=== PATIENT | female | born 1950 | race Hispanic/Latino ===

== ENCOUNTER → 2024-06-04 | Outpatient (CLI) | payer MEDICARE ==
[2024-06-04 12:30] LABS: BILIRUBIN,TOTAL 0.6 mg/dL (0.2-1.0); CREATININE 0.8 mg/dL (0.5-1.0)
== END | disposition home or self-care (01) ==
LOC: LAB 10:48
PROVIDERS: ATTEND Student in an Organized Health Care Education/Training Program
DX: I10 Essential (primary) hypertension (principal); E78.2 Mixed hyperlipidemia
CPT/HCPCS: 36415; 80053

== ENCOUNTER → 2024-06-14 | Outpatient (CLI) | payer MEDICARE ==
[~2024-06-14] MED LIST: IOHEXOL 350 MG/ML 100ML INFUS..BTL IV ONE
--- NOTE | 2024-06-14 10:55 | HMCIMG ---
CT CARDIAC ANGIO W/CONT. CCTA REASON: CHEST PAIN COMPARISON: None TECHNIQUE: Images are obtained through the heart in the axial plane before and during bolus IV contrast infusion, 100 cc Omnipaque 350. 2-D and 3-D multiplanar reconstruction images were then performed. The injection had to be repeated once due to motion artifact on the first sequence, total contrast volume was 200 cc. FINDINGS: This dictation is for the noncardiac findings only. Cardiac and coronary artery findings are reported separately. Visualized portions of the lungs are clear. There is normal-appearing pulmonary interstitium. There is no hilar or mediastinal lymphadenopathy. Chest wall structures appear unremarkable. IMPRESSION: 1. Unremarkable noncardiac portions of CT cardiac angiography.
== END | disposition home or self-care (01) ==
LOC: RAH 08:45
PROVIDERS: ATTEND Student in an Organized Health Care Education/Training Program
DX: R07.9 Chest pain, unspecified (principal)
CPT/HCPCS: 75574; Q9967

== ENCOUNTER → 2024-08-01 | Outpatient (CLI) | payer MEDICARE ==
--- NOTE | 2024-08-06 14:21 | HMCSR ---
APPROVED REPORT EXAM: Two-dimensional and M-mode echocardiogram with Doppler and color Doppler. INDICATION ICD: R07.9 Chest pain 2D Dimensions RVDd3.8 cmLVEF(%)54.0 (>50%)LVED Vol(simp.)99.0 mL IVSd0.8 (0.7-1.1cm)FS(%)28 %LVES Vol(simp.)42.0 mL LVDd4.3 (3.8-5.6cm)Ao Root(2D)2.7 (2.0-3.7cm)LVEF(%, simp.)57 % PWd0.8 (0.7-1.1cm)LVOT diam1.9 (1.8-2.4cm)LA ESV INDEX (BP)33.03 mL/m2 LVDs3.1 (2.5-4.0cm)IVC diam1.8 cm Aortic Valve AoV Vmax1.5 m/Quique Peak GR9.0 mmHgLVOT Vmax1.2 m/s AoV VTI0.4 mAo Mean GR4.8 mmHgLVOT VTI0.29 m VIRGILIO (VMAX)2.1 cm2AVA (VTI) 2.1 cm2 Mitral Valve MV E Sroh961.0 cm/sDECEL Guug005 ms MV A Vmax99.0 cm/sP 1/2 T60 ms E/A ratio1.2MVA (PHT)3.7 cm2 MR Max PG89 mmHg TDI E/E' Njbdjx17.9E/E' Krjacfb45.7 Pulmonary Valve PV Vmax1.1 m/sPV VTI0.29 mPV Mean GR3 mmHg PV Peak GR4.4 mmHgPI End Leelee. Phill 0.9 cm/s Tricuspid Valve TR Vmax2.3 m/sRAP (EST) 8 juBiBITO17.0 mmHg TR Peak GR21.0 mmHg Left Ventricle The left ventricle structure and function is normal. There is normal left ventricular wall thickness. LVEF is 55-60%. Indeterminate diastolic dysfunction. Right Ventricle The right ventricle is normal size. The right ventricular systolic function is normal. Atria The left atrium size is normal. The right atrium size is normal. Aortic Valve Aortic valve is trileaflet. Aortic valve leaflets are sclerotic but open well. Trace aortic regurgita tion. There is no aortic valvular stenosis. Mitral Valve Mitral valve leaflets are mildly sclerotic but open well. Mitral regurgitation is trace. There is no mitral valve stenosis. Tricuspid Valve The tricuspid valve leaflets appear normal. There is trace tricuspid regurgitation. Pulmonic Valve The pulmonic valve leaflets are thin and pliable; valve motion is normal. There is trace pulmonic merly vular regurgitation. Great Vessels The aortic root is normal in size. The IVC is normal in size and collapses >50% with inspiration. Pericardium No pericardial effusion. Conclusion The left ventricle structure and function is normal. LVEF is 55-60%. Indeterminate diastolic dysfunction. The right ventricle is normal size. The right ventricular systolic function is normal. The left atrium size is normal. The right atrium size is normal. No valvular pathology. No pericardial effusion.
== END | disposition home or self-care (01) ==
LOC: SHCH 08:11
PROVIDERS: ATTEND Student in an Organized Health Care Education/Training Program
DX: R07.9 Chest pain, unspecified (principal)
CPT/HCPCS: 93306

== ENCOUNTER 2024-08-14 05:47 | Day surgery (SDC) | payer MEDICARE ==
[2024-08-12 08:47] LABS: BILIRUBIN,URINE NEGATIVE (NEGATIVE); COLOR,URINE YELLOW (YELLOW); GLUCOSE, URINE (UA) NEGATIVE (NEGATIVE); KETONES,URINE NEGATIVE (NEGATIVE); LEUKOCYTE ESTERASE ,URINE 75 Leu/uL (NEGATIVE); NITRATE,URINE NEGATIVE (NEGATIVE); OCCULT BLOOD,URINE NEGATIVE (NEGATIVE); PROTEIN,URINE 30 mg/dL (NEGATIVE)
[2024-08-12 08:48] LABS: ADD UA MICROSCOPIC YES; APPEARANCE,URINE HAZY (CLEAR)
[2024-08-12 08:54] LABS: BACTERIA,URINE RARE /HPF (None Seen); MUCUS,URINE RARE LPF (None Seen); RBC,URINE 0-1 /HPF (0-1); SQUAMOUS EPITHELIAL CELL,UR RARE /HPF (0-2)
--- NOTE | 2024-08-12 08:55 | EKG ---
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
[2024-08-12 09:07] VITALS: BP 119/64; PULSE 53; RESP 14; TEMP 97.1
[2024-08-12 09:08] LABS: CREATININE 0.7 mg/dL (0.5-1.0); POTASSIUM 3.5 mmol/L (3.5-5.1)
[2024-08-12 09:10] LABS: INR <= 0.93 (0.85-1.15); PROTHROMBIN TIME 10.4 SEC (9.6-11.6)
[2024-08-12 09:12] LABS: PARTIAL THROMBOPLASTIN TIME 26.2 SEC (26.3-35.5)
[2024-08-12 09:15] LABS: BASOPHILS # (AUTO) 0.02 K/uL (0.00-0.20); BASOPHILS % (AUTO) 0.4 % (0.0-5.0); EOSINOPHILS # (AUTO) 0.11 K/uL (0.00-0.70); HEMATOCRIT 40.4 % (36-48); IMMATURE GRANULOCYTE ABSOLUTE 0.01 K/uL (0-1); LYMPHOCYTES # (AUTO) 1.9 K/uL (1.0-4.8); LYMPHOCYTES % (AUTO) 34.7 % (21.0-51.0); MEAN CORPUSCULAR HEMOGLOBIN 29.1 pg (27.0-33.0); MEAN CORPUSCULAR HGB CONC 32.2 g/dL (32.0-36.0); MEAN CORPUSCULAR VOLUME 90.4 fL (79-99); MONOCYTES # (AUTO) 0.5 K/uL (0.1-1.0); MONOCYTES % (AUTO) 8.2 % (3.0-13.0); NEUTROPHILS % (AUTO) 54.5 % (40.0-77.0); PLATELET COUNT (AUTO) 234 K/uL (130-400); RED BLOOD CELL COUNT(AUTO) 4.47 MIL/uL (4.00-5.50); RED CELL DISTRIBUTION WIDTH 12.9 % (11.0-15.5); WHITE BLOOD COUNT (AUTO) 5.5 K/uL (4.8-10.8)
--- NOTE | 2024-08-12 10:04 | HMCIMG ---
CHEST 1VW HISTORY: Preop COMPARISON: None FINDINGS: A frontal projection of the chest was obtained. Prominent interstitial markings are seen with possible superimposed infiltrates. The heart is borderline enlarged. Degenerative changes are seen. No evidence of aortic calcification is seen. IMPRESSION: 1. Prominent interstitial markings are seen with possible superimposed infiltrates.
--- NOTE | 2024-08-13 09:18 | NUR ---
REPORT REPORTED UA AND CXR TO HANANE CABALLERO. OK TO PROCEED
[~2024-08-14] VITALS: Ht 162.6 cm; Wt 77.7 kg
[2024-08-14] VITALS (8 sets, daily range): BP systolic 108–217; BP diastolic 60–173; PULSE 51–62; RESP 6–19; TEMP 94.7–97.7
[~2024-08-14 05:47] MED LIST changes: +ASPI-1443 PO; +ERGO500093 PO; -IOHEXOL 350 MG/ML 100ML INFUS..BTL IV ONE; +LOSA25TA41 PO; +PANT40TA54 PO; +ROSU10TA72 PO
[2024-08-14] MEDS: 0.9%NACL 1000ML 1,000 ML IV SCH (06:31)
[2024-08-14] MEDS ORDERED: ATOR20TA65 PO (06:39)
[2024-08-14] MEDS ORDERED: HEParin 10,000 UNIT/10ML (1,000 UNIT/ML) VIAL ONE (07:08)
[2024-08-14] MEDS ORDERED: IOHEXOL 350 MG/ML 100ML INFUS..BTL IV ONE (07:08)
[2024-08-14] MEDS ORDERED: NITROGLYCERIN 50MG VIAL ONE (07:08)
[2024-08-14] MEDS ORDERED: VERAPAMIL HCL 2.5 MG/ML VIAL ONE (07:08)
[2024-08-14] MEDS ORDERED: HEParin-NS 1,000 UNIT/500 ML 1,500 ML IV ONE (07:08)
[2024-08-14] MEDS ORDERED: LIDOCAINE HCL 400MG/20ML VIAL ONE (07:08)
[2024-08-14] MEDS ORDERED: FENTanyl CITRate PF 50 MCG/1 ML 2ML VIAL ONE (07:39)
[2024-08-14] MEDS ORDERED: MIDAZOLAM HCL 1 MG/ML 2ML VIAL ONE (07:39)
[2024-08-14] MEDS ORDERED: ATROPINE 1MG SYG IVP ONE (07:55)
[2024-08-14] MEDS ORDERED: DEXTROSE 50%-WATER 50 ML DISP.SYRIN IV PRN (09:00)
[2024-08-14] MEDS ORDERED: GLUCAGON 1MG KIT 1 MG ML IM PRN (09:00)
--- NOTE | 2024-08-14 09:04 | PRN ---
PROCEDURE REPORT DATE OF PROCEDURE: Aug 14, 2024 WATER QUALITY CONTROL ENGINEER: [Flaquito oakes MD ] PROCEDURE PERFORMED: Conscious sedation Ultrasound guided right radial artery access Selective left coronary artery angiogram Selective right coronary artery angiogram Left heart catheterization IFR of the LAD IFR of the D1 TR band 13 shaquille over right radial artery INDICATION: Abnormal coronary CTA DESCRIPTION OF PROCEDURE: After informed consent was obtained, the patient was prepped and draped in the usual sterile fashion. A 6 Chinese arterial sheath was inserted in the right radial artery using ultrasound guidance with first pass wall puncture. The arterial sheath was aspirated and flushed. A 6 Chinese JL 3.5 was then advanced to the ascending aorta over an exchange length J-tip guidewire, was aspirated and flushed, and was used for selective coronary angiograms in multiple obliquities. A JR-4 was advanced in a similar fashion to the ascending aorta over the J-tipped guidewire and was used for selective right coronary angiograms in multiple oblique views with findings as outlined below. The JR-4 catheter advanced into the LV and pressures were obtained with a pull-back across the aortic valve. Following review of all the angiographic images the decision was made to further interrogate the 1st diagonal and LAD stenosis. We exchanged the diagnostic catheters for a six Chinese XB three guide catheter which was advanced in similar fashion over the wire and used to selectively engage the left main c oronary artery. We then used in 014 in IFR wire which was advanced into the proximal LAD. We provided intracoronary nitroglycerin and normalized. We then advanced the IFR warranted the distal LAD under fluoroscopic guidance. IFR revealed 0.92 x 2 with no drift. We then retracted the IFR wire and redirected into the 1st diagonal branch and provided additional intracoronary nitr oglycerin. IFR was within normal limits with no evidence of ischemia. At this time all wires and catheters removed from the body. A TR band was placed over right radial artery. Patient tolerated procedure well with no postprocedure complication was transferred to label operator holding stable condition FLUOROSCOPY TIME: 10 min LEFT HEART HEMODYNAMICS: LVEDP 17 mm Hg and no gradient Ao CORONARY ANGIOGRAM: LEFT MAIN: Patent and 0% stenosis. Gives rise to LCx and LAD. LEFT ANTERIOR DESCENDING: Large vessel giving rise to two Diagonal branches. There is 50-60 prox to mid LAD stenosis just after the first septal artery with CHRISTAL 3 flow. Lad IFR of 0.92 x 2 with no drift. First diagonal is large with a 50 to 60% prox stenosis with normal IFR. LEFT CIRCUMFLEX: Large and gives rise to two OM branches. 0% stenosis. RIGHT CORONARY ARTERY: Large, dominant vessel giving rise to PDA and PL branches. Twenty 30% distal stenosis HEMOSTASIS: TR band 12 shaquille over right radial artery INTERVENTIONS: IFR hemodynamic assessment of the LAD and 1st diagonal COMPLICATIONS: None FINDINGS: Normal coronary anatomy and mild-moderate non-obstructive CAD. ESTIMATED BLOOD LOSS: 5 cc RECOMMENDATIONS/INSTRUCTIONS: Aggressive risk factor modification and initiate Toprol-XL 25 mg q.day. Follow up in Cardiology Clinic in 1-2 weeks post discharge with Dr[address] Aidan oakes CONTRAST DELIVERED TO PATIENT (mL): 115cc FLAQUITO Nicholas MD, MD Aug 14, 2024 09:04
--- NOTE | 2024-08-14 11:32 | NUR ---
VASC BAND VASC BAND REMOVE WITH NO ACTIVE BLEEDING NOTED. CLEANSED WRIST WITH CHLORAPREP FOLLOWED BY APPLY STERILE 2X2 GAUZE THEN 2X2 TEGADERM X 2. NO SWELLING OR REDNESS NOTED TO SURROUNDING AREA.
== END 2024-08-14 11:55 | disposition home or self-care (01) ==
LOC: DAH 05:47
PROVIDERS: ATTEND Student in an Organized Health Care Education/Training Program
DX: R93.1 Abnormal findings on diagnostic imaging of heart and coronary circulation (principal); R06.09 Other forms of dyspnea; I25.118 Atherosclerotic heart disease of native coronary artery with other forms of angina pectoris; I10 Essential (primary) hypertension; E78.2 Mixed hyperlipidemia; Z82.49 Family history of ischemic heart disease and other diseases of the circulatory system; Z90.11 Acquired absence of right breast and nipple; Z79.01 Long term (current) use of anticoagulants; Z79.899 Other long term (current) drug therapy
CPT/HCPCS: 80048; 83880; 85025; 85610; 85730; 87086; 81001; 36415; 71045; 93005; 93458; 93571; 93572; C1769 ×2; C1894; A4649; C1887; J3010; J3490 ×3; J7030; J1644 ×2; J2250; Q9967; A4215; A4335; A4222; A6260; A4221; A4663; A4216; A6206; A4606; Q9965 ×2; A4223 ×3; A4554; 99156; 99157; J0461

== ENCOUNTER → 2024-09-07 | Outpatient (CLI) | payer MEDICARE ==
[~2024-09-07] MED LIST changes: +ATOR20TA65 PO; -ROSU10TA72 PO
== END | disposition home or self-care (01) ==
LOC: SHCH 10:34
PROVIDERS: ATTEND Student in an Organized Health Care Education/Training Program
DX: R09.89 Other specified symptoms and signs involving the circulatory and respiratory systems (principal)
CPT/HCPCS: 93880